=== PATIENT | male | born 1960 | race Caucasian/White ===

== ENCOUNTER 2019-06-04 12:02 | Inpatient (IN) | payer BC ==
[~2019-06-04 12:02] MED LIST: CEFAZOLIN 2 Gram 2 GM/50 ML BAG IVPB ONE; CELECOXIB 100 MG CAPSULE PO ONE; FAMOTIDINE 20MG TABLET PO ONE; MECLIZINE 25 MG TABLET PO ONE; METOCLOPRAMIDE 10 MG TABLET PO ONE; VANCOMYCIN 1GM/200ML PREMIX 1 GM/200 ML PIGGYBACK IVPB ONE
[2019-06-04] MEDS ORDERED: RINGERS SOLUTION,LACTATED 1,000 ML IV ONE ×2 (12:15→14:00)
[2019-06-04 13:58] LABS: ABO GROUP O; ANTIBODY SCREEN NEGATIVE (NEGATIVE); RH TYPE POSITIVE
[2019-06-04] MEDS ORDERED: TRANEXAMIC ACID 1,000 MG/10 ML ML IU ONE (14:00)
[2019-06-04] MEDS ORDERED: BUPIVACAINE 0.5% W/EPI MPF 30 ML VIAL SQ ONE (14:00)
[2019-06-04] MEDS ORDERED: LORAZEPAM 2 MG/ML VIAL IV PRN ×2 (14:57→15:35)
[2019-06-04] MEDS ORDERED: ACETAMINOPHEN 325 MG TAB PO PRN (14:58)
[2019-06-04] MEDS ORDERED: HYDROCODONE/APAP 10/325 TABLET PO PRN (14:58)
[2019-06-04] MEDS ORDERED: ACETAMINOPHEN W/ CODEINE 300MG/60MG TABLET PO PRN ×2 (14:58)
[2019-06-04] MEDS ORDERED: ZOLPIDEM TARTRATE 5 MG TABLET PO PRN (14:58)
[2019-06-04] MEDS ORDERED: HYDROMORPHONE HCL 2 MG/ML VIAL IM PRN (14:58)
[2019-06-04] MEDS ORDERED: TRAMADOL HCL 50 MG TABLET PO PRN (14:58)
[2019-06-04] MEDS ORDERED: KETOROLAC 30 MG/ML VIAL IVP PRN ×2 (14:58)
[2019-06-04] MEDS ORDERED: MAGNESIUM HYDROXIDE 30 ML UDC PO PRN (14:58)
[2019-06-04] MEDS ORDERED: BISACODYL 10 MG SUPP RC PRN (14:58)
[2019-06-04] MEDS ORDERED: DIPHENHYDRAMINE HCL 25 MG CAPSULE PO PRN (14:58)
[2019-06-04] MEDS ORDERED: NALOXONE 0.4 MG/1 ML VIAL IVP PRN (14:58)
[2019-06-04] MEDS ORDERED: ONDANSETRON HCL IV 4 MG/2 ML VIAL IVP PRN (14:58)
[2019-06-04] MEDS ORDERED: AL HYDROX/MAG HYDROX 30ML UD PO PRN (14:58)
[2019-06-04] MEDS: POTASSIUM CHLORIDE/D5-0.9%NACL 20 MEQ/1,000 ML BAG IV SCH (16:28)
[2019-06-04] MEDS: HYDROCODONE/APAP 10/325 TABLET PO PRN ×2 (16:32→20:53)
[2019-06-04] MEDS: CEFAZOLIN 2 Gram 2 GM/50 ML BAG IVPB SCH (21:02)
[2019-06-04] MEDS: DOCUSATE SODIUM 100 MG CAPSULE PO SCH (22:00)
[2019-06-05] MEDS: POTASSIUM CHLORIDE/D5-0.9%NACL 20 MEQ/1,000 ML BAG IV SCH ×2 (01:02→07:25)
[2019-06-05] MEDS: HYDROCODONE/APAP 10/325 TABLET PO PRN ×3 (01:03→09:55)
[2019-06-05] MEDS: CEFAZOLIN 2 Gram 2 GM/50 ML BAG IVPB SCH ×2 (05:17→11:21)
[2019-06-05 06:45] LABS: HEMATOCRIT 39.2 % (42.0-52.0); HEMOGLOBIN 13.4 gm/dl (14.0-18.0)
[2019-06-05 06:57] LABS: BLOOD UREA NITROGEN 13 mg/dL (6-20); CREATININE 0.7 mg/dL (0.7-1.2); EST GLOMERULAR FILTRATION RATE > 60 mL/min; GLUCOSE,RANDOM 134 mg/dL (74-109)
[2019-06-05] MEDS: DOCUSATE SODIUM 100 MG CAPSULE PO SCH (09:54)
[2019-06-05] MEDS ORDERED: AMLODIPINE BESYLATE 5MG TAB PO SCH (10:00)
[2019-06-05] MEDS ORDERED: RIVAROXABAN 10 MG TABLET PO SCH (10:00)
[2019-06-05] MEDS ORDERED: CYANOCOBALAMIN (VITAMIN B-12) 100 MCG TABLET PO SCH (10:00)
[2019-06-05] MEDS ORDERED: ALLOPURINOL 100 MG TAB PO SCH (10:00)
[2019-06-05] MEDS ORDERED: FERROUS SULFATE 325 MG TAB PO SCH (10:00)
[2019-06-05] MEDS ORDERED: MULTIVITAMINS/MINERALS TABLET PO SCH (10:00)
[2019-06-05] MEDS ORDERED: FOLIC ACID 1 MG TABLET PO SCH (10:00)
[2019-06-05] MEDS ORDERED: INDOMETHACIN 25 MG CAPSULE PO SCH (10:00)
[2019-06-05] MEDS ORDERED: LISINOPRIL 20 MG TABLET PO SCH (10:00)
--- NOTE | 2019-06-05 10:45 | Rehab Evaluation ---
Patient Information - Patient Information Diagnosis: R hip DJD Ordered Treatment: PT Evaluate and Treat Status: Initial Evaluation Surgery: Yes (R THR) Date of Surgery: 06/04/19 Past Medical/Surgical Hx: PAST MEDICAL/SURGICAL HISTORY Past Surgical History APPY UMBILICAL HERNIA C SCOPE PMH - Respiratory Hx Respiratory Disorders No PMH - Cardiovascular Hx Cardiovascular Disorders Yes Hx Hypertension Yes: ON MEDS Exercise Tolerance Good PMH - Neuro Hx Neurological Disorders No PMH - GI Hx Gastrointestinal Disorders No PMH - Hx Genitourinary Disorders No PMH - Endocrine Hx Endocrine Disorders No PMH - Musculoskeletal Hx Musculoskeletal Disorders Yes Hx Arthritis Yes: HANDS RIGHT HIP Hx Gout Yes: CONTROLLED WITH MEDS PMH - Psych Hx Psychiatric Problems No PMH - Hematology/Oncology Hx Hematology/Oncology No Disorders Premorbid Status: Detail (The patient was independent with all mobility prior to surgery.) Social History: Detail (The patient lives with significant other and daughter in a one story house with 3 steps at the enterance and no handrails. The bathroom is equipped with tub/shower combination, hand held shower and standard height toilet, riser seat with handle.) Precautions: [place], Fall, Other (THR precautions.) - Time With Patient Total Time Spent With Patient (Min): 30 Treatment Procedures: Detail (Initial evaluation low complexity, gait training) Subjective Information - Subjective Information Per Patient (The patient had minimal complaints of hip pain but did not rate his pain using 0-10 pain scale.) Objective Data - Mental Status Patient Orientation: Oriented x3 - Visual Perception Appears within normal limits for therapeutic activities - ROM Not within normal limits (The patient's right hip ROM is within THR.) - Strength/Tone Not within normal limits (The patient's R LE strength was not tested but is functional. The patient's L LE strength is WNL.) - Bed Mobility Independent (The patient is independent with supine to and from sit transfer.) - Transfers Independent (The patient is independent with sit to and from stand transfer.) - Balance Balance Sitting: Good Balance Standing: Good - Gait Detail (The patient ambulated independently with front wheeled walker WBAT on the R LE a distance of 134 feet x 1. The patient ambulated on stairs with one cane and hand hold on railing with supervision for safety using proper technique.) Therapy Assessment - Therapy Assessment Detail (The patient was independent with bed mobility, transfers and ambulation. The patient has met all inpatient goals and is discharged from inpatient PT.) Patient Education - Patient Education Teaching Topic: Exercise/Activity (The patient was independent with THR HEP.), Precautions (The patient was demonstrated good understanding of THR precautions.) Response: Return Demonstration Teaching Method: Discussion, Demonstration Teaching Recipient: Patient Barriers To Learning: Age Related Problem List - Problem List Physical Therapy Problem List: Detail (Decreased R LE as to be expected s/p surgery.) Prognosis - Prognosis Good Plan - Plan Physical Therapy Plan: The patient is discharged from inpatient PT and is to continue with Home PT.
--- NOTE | 2019-06-05 11:44 | Rehab Evaluation ---
Patient Information - Patient Information Diagnosis: R hip DJD Ordered Treatment: OT Evaluate and Treat Status: Initial Evaluation Surgery: Yes (R THR) Date of Surgery: 06/04/19 Past Medical/Surgical Hx: PAST MEDICAL/SURGICAL HISTORY Past Surgical History APPY UMBILICAL HERNIA C SCOPE PMH - Respiratory Hx Respiratory Disorders No PMH - Cardiovascular Hx Cardiovascular Disorders Yes Hx Hypertension Yes: ON MEDS Exercise Tolerance Good PMH - Neuro Hx Neurological Disorders No PMH - GI Hx Gastrointestinal Disorders No PMH - Hx Genitourinary Disorders No PMH - Endocrine Hx Endocrine Disorders No PMH - Musculoskeletal Hx Musculoskeletal Disorders Yes Hx Arthritis Yes: HANDS RIGHT HIP Hx Gout Yes: CONTROLLED WITH MEDS PMH - Psych Hx Psychiatric Problems No PMH - Hematology/Oncology Hx Hematology/Oncology No Disorders Premorbid Status: Detail (The patient was independent with all mobility prior to surgery. Pt's girlfriend is responsible for all home mgmt, meal prep and laundry tasks.) Social History: Detail (The patient lives with significant other and daughter in a one story house with 3 steps at the entrance and no handrails. The bathroom is equipped with tub/shower combination, hand held shower and shower seat as well as a standard height toilet with riser seat. Pt has a 2 wheeled walker, principal strategist and long bath sponge.) Precautions: [place], Fall, Other (THR precautions.) - Time With Patient Total Time Spent With Patient (Min): 25 Treatment Procedures: Detail (OT eval low complexity) Subjective Information - Subjective Information Per Patient Objective Data - Pain Pain Present: Yes (01/23) - Mental Status Patient Orientation: Oriented x3 - Visual Perception Appears within normal limits for therapeutic activities - ROM Within normal limits (Joao UE AROM WNL) - Strength/Tone Within normal limits (Joao UE strength WNL) - Coordination Appears within normal limits for therapeutic activities - ADL's/IADL's Detail (Pt reports he already got dressed and he is not interested in practicing modified LE dressing techniques. He was able to state hip precautions. Pt educated on modified LE dressing techniques using adaptive equipment as well as shower and kitchen safety and modifications. Pt was able to verbalize understanding.) Therapy Assessment - Therapy Assessment Detail (Pt able to verbalize understanding of modified LE dressing techniques using adaptive equipment.) Problem List - Problem List Occupational Therapy Problem List: Detail (No current IP OT problems identified.) Goals - Goals Occupational Therapy Goals: No current IP OT goals identified. Prognosis - Prognosis Good Plan - Plan Occupational Therapy Plan: No further IP OT recommended. Thank you for this referral.
[2019-06-05] MEDS ORDERED: MORPHINE SULFATE 5 MG/ML VIAL IJ ONE (12:14)
[2019-06-05] MEDS ORDERED: LIDOCAINE 2% MDV (20MG/ML) 20ML VIAL IV ONE (12:14)
[2019-06-05] MEDS ORDERED: GLYCOPYRROLATE 0.2 MG/ML ML IV ONE (12:14)
[2019-06-05] MEDS ORDERED: TRANEXAMIC ACID 1,000 MG in 0.9 % SODIUM CHLORIDE 100ML 100 ML IV ONE (12:14)
[2019-06-05] MEDS ORDERED: DEXAMETHASONE 4 MG/ML 1ML VIAL IVP ONE (12:14)
[2019-06-05] MEDS ORDERED: **ER** KETAMINE HCL 500MG/10ML VIAL IV ONE (12:14)
[2019-06-05] MEDS ORDERED: PHENYLEPHRINE HCL 10 MG/ML VIAL IVP ONE (12:14)
[2019-06-05] MEDS ORDERED: PROPOFOL 10 MG/ML VIAL IV ONE (12:14)
[2019-06-05] MEDS ORDERED: ROPIVACAINE HCL (NAROPIN) /PF 5MG/ML 20ML VIAL IV ONE (12:14)
[2019-06-05] MEDS ORDERED: 0.9 % SODIUM CHLORIDE 10 ML VIAL IVP ONE (12:14)
[2019-06-05] MEDS ORDERED: FENTANYL PF 100MCG/2ML VIAL IV ONE (12:14)
--- NOTE | 2019-06-05 14:51 | Operative Note ---
DATE OF SURGERY: 06/04/2019 PREOPERATIVE DIAGNOSIS: End-stage arthrosis of the right hip. POSTOPERATIVE DIAGNOSIS: End-stage arthrosis of the right hip. OPERATION: Cementless right total hip arthroplasty using Galo and Nephew components with a size 60 no-hole Reflection cup, 32 mm diameter 35-degree offset highly crosslinked liner, a size 14 high-offset cementless Tyrone stem with a +0 32 mm diameter Oxinium head. STAFF SURGEON: Jesse Hines MD ANESTHESIA: Spinal. PREPARATION: Chloraprep. INDIVIDUAL CONSIDERATIONS: None. PROCEDURE: The patient was taken to the operating room, placed supine on the operating room table. He had a successful induction of spinal anesthetic. He was then placed on his side right side up, and his right leg and hip were prepped and draped in the usual fashion. The patient had direct posterior approach to the hip. Sharp dissection carried down through skin and subcutaneous tissues. Small veins were coagulated with a Bovie. The tensor gluteal fascia was opened along the entire length of the incision, and deep retractors were placed. Short external rotators were identified, piriformis fossa removed with a Bovie. This exposed the posterior capsule. Posterior capsulectomy was performed. Hip was dislocated posteriorly. He had large osteophytes basically total exposed bone with bone loss. Femoral neck cut was then made with an oscillating saw and a rim capsulectomy was performed. I started reaming the socket with a 47 to medialize and then reamed to the introitus, which was a 59 for a size 60 cup. I slightly under-reamed to 58. After thorough irrigation, I impacted a size 60 no-hole Reflection cup in 20 degrees of forward flexion and 40 degrees of abduction using the extraarticular alignment guide and bony landmarks. There was solid cementless fixation. After irrigation, I then impacted a 32 mm diameter 35-degree offset highly crosslinked liner with the offset posterior and inferior. This gave an excellent stable acetabular construct, and this was packed off. The proximal femur was delivered into the wound, and box cutting osteotome was used to remove the proximal metaphyseal bone. Mid stem reaming was done to a size 14. I started feeling cortex between 12-13. I broached to a 14. Anteversion was dialed in to the natural anteversion angle, which is about 25-30 degrees. After calcar reaming, with a high-offset trial +0, there was absolute stability. I removed the trial, irrigated out, and impacted a high-offset size 12 Tyrone stem with solid cementless fixation, solid calcar contact. I then irrigated and dried the Idris taper, impacted +0 32 mm diameter Oxinium head. I reduced the hip. It was normal to shock, had absolute anterior stability in extension and external rotation. I flexed him up maximally with almost knee chest and internally rotated 20-30 degrees, still intact, at 90/90 position, had full stability. The sciatic nerve was inspected and found to be completely intact. Thorough irrigation to remove any visual or palpable debris. I then mixed 1 g of tranexamic acid with 30 mL of saline and placed this deep to the fascia. The fascia was then closed with a running #2 quill, subcu was closed in layers with running 0 quill. I did infiltrate the skin and subcutaneous tissue with 30 mL of 0.5% Marcaine with epinephrine, and then the skin was closed with leanne. The patient tolerated the procedure well. Needle and sponge counts were correct. Estimated blood loss was about 500 mL. We will check hemoglobin in the morning. There were no complications. LIZZ
[2019-06-07] MEDS ORDERED: THIAMINE MONONITRATE 100 MG TABLET PO SCH (14:57)
== END 2019-06-05 12:15 | disposition home health service (06) | DRG 470 ==
LOC: MEDSURG 12:02
PROVIDERS: ADMIT Orthopaedic Surgery; ATTEND Orthopaedic Surgery
PROC: 0SR906A Replacement of Right Hip Joint with Oxidized Zirconium on Polyethylene Synthetic Substitute, Uncemented, Open Approach (ICD-10-PCS; principal; 2019-06-04 14:30)
DX: M16.11 Unilateral primary osteoarthritis, right hip (principal); I10 Essential (primary) hypertension; M10.9 Gout, unspecified
CPT/HCPCS: 76942; 80048; 85014; 85018; 86850; 86900; 86901; C1776; J1885; J2370; J3370; J3480; J7120